=== PATIENT | female | born 1965 ===

== ENCOUNTER 2021-06-11 00:18 | Outpatient (CLI) | payer MEDICARE, SELFPAY ==
--- NOTE | 2021-06-11 07:48 | DI.US_ITS ---
APPROVED REPORT EXAM: Comprehensive 2D, Doppler, and color-flow Echocardiogram Patient Location: Out-Patient Athletic Equipment Manager: Opal Ortega RDCS (AE) Indications: Heart failure, h/o PFO Echo Enhancing Agent Indication: Rule out Shunt Agent(s) / Amount(s) Used: Agitated Saline 30.0 cc Comments: Contrast study was performed with 3 IV injections of 10ccs of agitated normal saline, at st, with cough and post valsalva maneuver. Other Information Study Quality: Good Conclusion Normal left ventricular wall thickness and chamber size. Estimated ejection fraction is 60%. Wall m otion is normal Normal right ventricular size and systolic function Both atria are normal in size The atrial septum was thin and hypermobile. The patient is known to have a patent foramen ovale. Ag itated saline injection did not demonstrate any significant shunt Trileaflet aortic valve with mild regurgitation Normal mitral valve with mild regurgitation Normal tricuspid valve with mild regurgitation. Estimated right ventricular systolic pressure is nor mal at 18 mmHg Dilated ascending aorta measuring 3.55 cm Wall motion Left Ventricle The left ventricle is normal size. The left ventricular systolic function is normal. The left ventric ular ejection fraction is within the normal range. There is normal left ventricular wall thickness. T here is normal LV segmental wall motion. There is no ventricular septal defect visualized. LVEF is 60 %. Right Ventricle The right ventricle is normal size. The right ventricular systolic function is normal. The RVSP is 18 .0mmHg. Atria The left atrium size is normal. The right atrium size is normal. The atrial septum is thin and hyperm obile consistent with an atrial septal aneurysm. The patient is known to have a patent foramen ovale. Agitated saline injection did not demonstrate any significant shunt Aortic Valve The aortic valve is normal in structure. Aortic valve is trileaflet. There is no aortic valvular sten osis. Mild aortic regurgitation. Mitral Valve The mitral valve is normal in structure. No evidence of mitral valve stenosis. Mild mitral regurgitat ion. Tricuspid Valve The tricuspid valve is normal in structure. There is no tricuspid valve stenosis. Mild tricuspid regu rgitation. Pulmonic Valve The pulmonary valve is normal in structure. There is no pulmonic valvular stenosis. There is no pulmo alpa valvular regurgitation. Great Vessels The aortic root is normal in size. The ascending aorta is mildly dilated. IVC is normal in size and c ollapses >50% with inspiration. Pericardium There is no pericardial effusion. 2D Dimensions IVSD d PLAX 0.95 cm F: 0.6-1.0 LV Vol A2C d MOD 85.5 mL LVPW d PLAX 0.95 cm F: 0.6 - 1.0 LV Vol A4C d MOD 75.5 mL LVID d PLAX 4.85 cm F: 3.8 - 5.2 LA vol/ BSA A2C s A-L 24.8 mL/m2 LVDs 3.35 cm F: 2.2 - 3.5 LA vol/ BSA A4C s A-L 26.4 mL/m2 Ao Root d 2.89 cm F: 2.7 - 3.3 LA Vol/ BSA Biplane s A-L 25.8 mL/m2 RA Area A4C 11.54 cm2 LA Area A4C s MOD 16.84 cm2 RA Vol/ BSA A4C s A-L 15.3 mL/m2 LA Area A2C s MOD 16.21 cm2 Ao Asc Diam d 3.55 cm F: 2.3 - 3.1 LV EF A4C MOD 58.0 % LV EF Teichholz 58.4 % LV EF A2C MOD 60.9 % LVEF (Peterson's) 58.50 % F: 54 - 74 LV EF Biplane MOD 58.5 % LV Volume 63.38 mL F: 46 - 106 SV 47.33 mL LV Volume Index 36.01 mL/m2 F: 29 - 61 SV Index 26.83 mL/m2 LV Vol Biplane MOD 80.9 mL FS 30.85 % M-Mode TAPSE 1.85 cm (M/F) >1.7 LV Diastology MV E' medial 0.059 (>0.07 m/s) E/A Ratio 1.0 LV E/e MED 9.20 (<14) MV E Vmax 0.54 (0.4-1.3 m/s) MV E' lateral 0.086 (>0.1 m/s) MV A Vmax 0.55 (0.4-1.3 m/s) LV E/e LAT 6.30 (<14) MV E/A Ratio 0.91 MV E/E' medial 9.23 MV E/E' lateral 6.33 Aortic Valve LVOT Area 3.18 cm2 AoV Area Vmax 2.03 cm2 LVOT Vmax 0.93 m/s AoV Area/ BSA (Vmax) 1.15 cm2/m2 LVOT Mean Norris. 0.65 m/s SAÚL Mean Norris. 1.96 cm2 LVOT Peak Grad 3.5 mmHg SAÚL Mean Norris. Index 1.11 cm2/m2 LVOT Mean Grad 1.9 mmHg AR DT 3629 msec LVOT VTI 0.163 m AR PHT 1052 msec LVOT Diam s 2.00 cm AoV Vmax 1.47 m/s Velocity Ratio 0.63 AoV Mean Norris. 1.05 m/s AoV Peak Grad 8.6 mmHg LVOT SV 51.89 mL AoV Mean Grad 4.8 mmHg AoV VTI 0.291 m AoV Area VTI 1.78 cm2 AoV Area/ BSA (VTI) 1.01 cm/m2 Mitral Valve MV DT 240 (160-240 msec) MV PHT 70 msec MV Area PHT 3.16 cm2 MV VTI 0.205 m MV Area VTI 2.54 (4.0-6.0 cm2) Pulmonary Valve PV Vmax 0.64 (0.5-1.5 m/s) RVOT Peak Gr. 1.56 mmHg PV Peak Grad 1.6 mmHg RVOT Mean Gr. 0.75 mmHg PV Mean Grad 1.1 mmHg RVOT VTI 0.119 m PV VTI 0.136 m RVOT Vmax 0.62 m/s Tricuspid Valve TR Peak Grad 15.0 mmHg TR Vmax 1.94 m/s RA Pressure 3.00 mmHg RVSP (TR) 18.0 mmHg
== END 2021-06-11 00:38 ==
LOC: DI 00:18
PROVIDERS: Visit Provider Family Medicine
DX: I50.9 Heart failure, unspecified (principal)
CPT/HCPCS: 93306